=== PATIENT | male | born 1955 | race Caucasian/White ===

== ENCOUNTER 2020-08-28 12:11 | Outpatient (CLI) | payer OTHER ==
[2020-08-28] MEDS ORDERED: Iopamidol 370 76% 100 ML VIAL ONE (13:01)
--- NOTE | 2020-08-28 13:08 | CT ---
EXAM: CT Abdomen Pelvis W WO con PROVIDED CLINICAL HISTORY: Gross hematuria COMPARISON: 06/21/2010 FINDINGS: The visualized lung bases are free of significant opacity. There is no evidence for urinary tract calculi or hydronephrosis. There is a simple appearing cyst em anating from the inferior pole of the right kidney as well as subcentimeter hypodensities involving each kidney too small to definitively characterize but also likely reflecting cysts. There is no evid ence for solid renal mass. The renal collecting systems and ureters demonstrate no evidence for filling defect. The prostate gla nd appears enlarged and produces mass effect upon the urinary bladder base. There is a subcentimeter focus of altered CT density at the posterior aspect of the urinary bladder base left of midline (seen to best advantage on axial images 81 of series 2 and series 3), associated with the bladder wall. This does not definitely demonstrate enhancement, though assessment for such is difficu lt due to its small size. There is prominent heterogeneous density present within the urinary bladder on the delayed images, likely predominantly on the basis of mixing artifact as no such large abnormality is seen on the nonurographic images. The liver, spleen, pancreas and adrenal glands appear unremarkable. There is no bowel dilatation, inflammatory fat stranding, free fluid or lymph node enlargement appare nt. The osseous structures demonstrate no concerning lytic or blastic lesions. Scattered atherosclerotic vascular calcifications are seen. IMPRESSION: 1. Apparent filling defect within the urinary bladder as described, without definite enhancement. Blo od products and proteinaceous debris are possible. Mass is not excluded. 2. No evidence for urinary tract calculi or solid renal mass.
== END 2020-08-28 12:12 | disposition home or self-care (01) ==
LOC: CT 12:11
PROVIDERS: ATTEND Family Medicine
DX: R31.9 Hematuria, unspecified (principal)
CPT/HCPCS: 74178; Q9967

== ENCOUNTER 2020-09-14 06:40 | Outpatient (CLI) | payer OTHER | END 2020-09-14 06:41 | disposition home or self-care (01) | LOC: LABBT 06:40 | PROVIDERS: ATTEND Urology | DX: Z01.818 Encounter for other preprocedural examination (principal); R31.0 Gross hematuria; N28.1 Cyst of kidney, acquired; N40.1 Benign prostatic hyperplasia with lower urinary tract symptoms; R35.0 Frequency of micturition; Z87.442 Personal history of urinary calculi; Z12.5 Encounter for screening for malignant neoplasm of prostate; N28.9 Disorder of kidney and ureter, unspecified; R39.198 Other difficulties with micturition; Z90.79 Acquired absence of other genital organ(s) | CPT/HCPCS: 93005; 93010 ==

== ENCOUNTER 2020-09-19 06:28 | Observation (INO) | payer OTHER ==
[2020-09-14 12:07] LABS: Hemoglobin 13.9 g/dL (14.0-18.0); Mean Corpuscular Hemoglobin 29.8 PG (27.0-33.0); Mean Corpuscular Volume 90.3 fl (80.0-100.0); Mean Platelet Volume 9.6 fl (7.4-10.4); Platelet Count 221 10x3/uL (130-400); RBC Distribution Width 12.4 % (11.5-14.5); Red Blood Cell (RBC) Count 4.66 10x6/uL (4.40-5.80); White Blood Cell (WBC) Count 7.6 10x3/uL (4.5-11.0)
[2020-09-14 12:18] LABS: Anion Gap 15 mmol/L (10-20); BUN (Urea Nitrogen) 20 mg/dL (8.4-25.7); Calc. Creatinine Clearance 0 mL/min (70-130); Calcium 9.3 mg/dL (7.8-10.44); Carbon Dioxide 23 mmol/L (23-31); Chloride 109 mmol/L (98-107); Glucose 105 mg/dL (80-115); Potassium 4.5 mmol/L (3.5-5.1); Sodium 142 mmol/L (136-145)
[2020-09-14 12:34] LABS: INR-International Normal Ratio 1.1; PTT 28.8 sec (22.0-33.0); Prothrombin Time 11.1 sec (9.5-12.1)
[2020-09-14 23:08] LABS: SARS-CoV-2 MS2 Positive; SARS-CoV-2 N Gene Negative; SARS-CoV-2 S Gene Negative; SARS-CoV-2 by NAA Not Detected (NotDetected); SARS-CoV-2 orf1ab Negative
[2020-09-19] MEDS ORDERED: Levofloxacin 500 mg/D5W 100 ml Premix Bag ONE (07:00)
[2020-09-19] MEDS ORDERED: Fentanyl 100 MCG/2 ML VIAL ONE (08:27)
[2020-09-19] MEDS ORDERED: ePHEDrine 50 MG/ML VIAL ONE (10:31)
[2020-09-19] MEDS ORDERED: PHENYLEPHRINE-NS 100 MCG/ML 10 ML SYRINGE ONE (10:31)
[2020-09-19] MEDS ORDERED: Lidocaine 1% PF 5 ML VIAL ONE (10:31)
[2020-09-19] MEDS ORDERED: Dexamethasone 20 MG/5 ML VIAL ONE (10:31)
[2020-09-19] MEDS ORDERED: Calcium Chloride 1 GM/10 ML Abboject SYRINGE ONE (10:31)
[2020-09-19] MEDS ORDERED: PROPOFOL 200 MG/20 ML VIAL ONE (10:31)
[2020-09-19] MEDS ORDERED: Ondansetron PF 4 MG/2 ML Vial ONE (10:31)
[2020-09-19] MEDS ORDERED: Ondansetron PF 4 MG/2 ML Vial IVP PRN (10:46)
[2020-09-19] MEDS ORDERED: Mag-Al 1200 mg/1200 mg/30 ML UDCUP PO PRN (10:46)
[2020-09-19] MEDS ORDERED: Oxybutynin 5 MG TAB PO PRN (10:46)
[2020-09-19] MEDS ORDERED: Phenazopyridine HCl 97.5 MG TABLET PO PRN (10:46)
[2020-09-19] MEDS ORDERED: Acetaminophen 500 MG TAB PO PRN (10:46)
[2020-09-19] MEDS ORDERED: hydrALAZINE 20 MG/ML VIAL SLOW IVP PRN ×2 (10:46)
[2020-09-19] MEDS ORDERED: Zolpidem Tartrate 5 MG TAB PO PRN (10:46)
[2020-09-19] MEDS ORDERED: diphenhydrAMINE 50 MG/ML VIAL IVP PRN (10:46)
[2020-09-19] MEDS ORDERED: traMADol HCl 50 MG TAB PO PRN (10:55)
--- NOTE | 2020-09-19 11:36 | OP ---
DATE OF PROCEDURE: 09/19/2020 PREOPERATIVE DIAGNOSES: 1. A 65-year-old male with history of gross hematuria. 2. History of benign prostatic hyperplasia, status post transurethral resection of the prostate in 2003, with persistent obstructive urinary symptoms POSTOPERATIVE DIAGNOSES: 1. A 65-year-old male with history of gross hematuria. 2. History of benign prostatic hyperplasia, status post transurethral resection of the prostate in 2003. PROCEDURES PERFORMED: Cystoscopy, transurethral resection of prostate, transurethral vaporization of the prostate urethra, excision of right midshaft penile lesion 6 to 8 mm in size. ANESTHESIA: LMA, general. COMPLICATIONS: None apparent. DISPOSITION: To recovery room in stable condition. IV FLUIDS: 1200 mL. ESTIMATED BLOOD LOSS: About 150 mL. SPECIMEN: 1. TUR prostate. 2. Penile lesion midshaft, dorsal lateral. INTRAOPERATIVE FINDINGS: 1. Diffuse bladder trabeculation consistent with chronic outlet obstruction. 2. No evidence of bladder tumor. 3. Severely obstructing bilobar hyperplasia of the prostate, R lobe >>> left 4. Mid penile shaft lesion pearly in characteristic, rule out condyloma. 5. Prostatic urethra, hypervascular with varicosities. INDICATIONS FOR PROCEDURE AND HISTORY: Mr. Cherry is a 65-year-old male, referred to me by Dr. Carl due to intermittent gross hematuria with obstructive urinary symptoms. He underwent cystoscopy, which demonstrated old clots in the bladder, which I evacuated at bedside. In my office, cystoscopy demonstrated no bladder stone, however, he has changes consistent with a previous TUR as there was asymmetry of the right lateral lobe, no bladder tumor was seen. He presents today for TURP. Risks and complications and indications for the procedure was reviewed with the patient in detail including, but not limited to, bleeding, pain, infection, clot retention, bladder neck contracture, stricture formation, possible secondary procedure, possible stress incontinence, expectations of urge incontinence in the postop period, bladder or urethral injury discussed with him in detail. We did discuss options of alternative procedure :UroLift, however has he has gross hematuria due to friable prostatic urethra mucosa. TURP was advised. DESCRIPTION OF PROCEDURE: After an informed consent was signed, the patient was taken to the operating room, placed in a dorsal lithotomy position with the genital area prepped and draped in the usual surgical sterile fashion. A 21-Burkinan cystoscope was utilized for cystoscopy and a 30-degree and 70-degree lens was utilized to perform a cystoscopy, which demonstrated no evidence of bladder tumor. There was diffuse bladder trabeculation consistent with chronic outlet obstruction. Cystoscopy demonstrated as previous right lateral lobe asymmetrically enlarged, there was changes at the bladder neck consistent with previous TUR, left lateral lobe. Majority of his obstructing component is right lateral lobe. Prostatic urethra demonstrates significant varicosities. At this time, we transitioned to the bipolar resectoscope 26-Burkinan continuous sheath with a visual obturator. This was passed to the level of the bladder. As there was most of his obstructing lobes in the right side, he does have trigonal elevation of the right lateral lobe, the UOs were kept out of harm's way at all times. We resected the right lateral lobe, which was obstructing to be flushed with the contralateral lateral lobe. Near the end of the procedure, he had a wide bladder neck, resolution of obstructing right lateral lobe was noted. As he has some component of lateral lobe protruding after the resection of the right lateral lobe, I began to resect the left lateral lobe near the bladder neck first. Subsequently with Ellik evacuation, he did have gross hematuria and this demonstrated venous oozing from the left lateral prostatic urethra. I did not resect further as there were capsular fibers, this appeared to be venous in nature. With all prostatic chips evacuated, we repeatedly inspected the prostatic urethra after decompression, to assess degree of venous oozing.. This was isolated to the left lateral lobe. We then subsequently transitioned to a vaporization probe, and transurethral vaporization of the prostate was performed. We did obtain good hemostasis throughout the prostatic urethra. The venous bleed was difficult to address, as it was the nature of the venous bleeding to have issues with decompressed bladder and the urethra. We looked in the prostatic urethra multiple times, decompressing the bladder. I was able to get control of the venous bleed, with the button vaporization setting. With the bladder and the prostatic urethra near empty, it appeared to have stopped. At this time, a 22-Burkinan three-way Dale catheter was inserted without significant issues and I did inflate 40 mL in the balloon with sterile water in case he needs to be placed on traction for recurrent venous bleed. He did not require to be placed on traction, CBI was started with minimal to low rate and demonstrated clear output. He will be monitored overnight with CBI, we will monitor his CBC, BMP. Subsequently there was a pearly penile lesion at the mid dorsal penile shaft, excisional biopsy was performed with Metzenbaum scissors and bed of the lesion cauterized with electrocautery. This was sent for pathology as well. Job ID: [id number] MTDD
[2020-09-19] MEDS ORDERED: hydrALAZINE 20 MG/ML VIAL ONE (12:02)
[2020-09-19 13:07] LABS: #Lymphocytes 0.8 thou/uL (1.20-3.40); #Monocytes 0.1 thou/uL (0.11-0.59); #Neutrophils 8.3 thou/uL (1.40-6.50); %Basophils 0.1 % (0.0-1.0); %Eosinophils 0.4 % (0.0-10.0); %Lymphocytes 8.2 % (21.0-51.0); %Monocytes 1.3 % (0.0-10.0); Hemoglobin 14.1 g/dL (14.0-18.0); Mean Corpuscular Volume 91.4 fL (78.0-98.0); Mean Platelet Volume 7.6 fL (7.4-10.4); Platelet Count 159 thou/uL (130-400); RBC Distribution Width 11.9 % (11.5-14.5); Red Blood Cell (RBC) Count 4.56 mill/uL (4.70-6.10); White Blood Cell (WBC) Count 9.2 thou/uL (4.8-10.8)
[2020-09-19 13:25] LABS: Anion Gap 15 mmol/L (10-20); BUN (Urea Nitrogen) 19 mg/dL (8.4-25.7); Calc. Creatinine Clearance 60 mL/min (70-130); Calcium 9.1 mg/dL (7.8-10.44); Carbon Dioxide 18 mmol/L (23-31); Chloride 112 mmol/L (98-107); Glucose 120 mg/dL (80-115); Potassium 4.3 mmol/L (3.5-5.1); Sodium 141 mmol/L (136-145)
--- NOTE | 2020-09-19 13:27 | RAD ---
EXAM: CHEST ONE VIEW HISTORY: Postoperative, post TURP COMPARISON: None FINDINGS: The cardiac silhouette and pulmonary vasculature are within normal limits. Mild linear densities are seen in the region of the lingula and left lung base as well as to a lesser extent right lung base which may be related to minimal atelectasis and/or areas of scarring. No consolidation or pleural flu id is seen. Degenerative changes are seen in the spine. IMPRESSION: Minimal atelectasis versus scarring at each lung base without consolidation or pleural fluid seen.
[2020-09-19 13:34] LABS: Troponin I 0.015 ng/mL (< 0.028)
[2020-09-19] MEDS ORDERED: Metoprolol Tartrate 5 MG/5 ML VIAL IVP PRN (13:37)
--- NOTE | 2020-09-19 14:45 | CON ---
DATE OF CONSULTATION: 09/19/2020 PRIMARY CARE PROVIDER: Pito Carl MD. PRIMARY SERVICE ATTENDING: Jaclyn Weeks DO with Urology Service. REASON FOR CONSULTATION: Postoperative hypertension. HISTORY OF PRESENT ILLNESS: This is a 65-year-old male who was admitted under Dr. Weeks's service, who is status post transurethral resection of the prostate due to recurrent hematuria and benign prostatic hyperplasia, undergoing the procedure on 09/19/2020. Postoperatively, the patient was transferred to the PACU and noted to be hypertensive and complaining of some feelings of general weakness and jittery. The patient underwent evaluation including chest imaging, metabolic screening, as well as receiving IV hydralazine x2 doses due to postoperative hypertension. The patient states he had similar sensations after previous surgery several years prior, that was attributed to exposure to anesthesia. The patient denied any severe shortness of breath, tongue swelling, hives, fever, prominent chest pain, nausea, or vomiting. The patient denies any unilateral weakness or visual disturbance. PAST MEDICAL HISTORY: 1. Benign prostatic hyperplasia. 2. Recurrent hematuria. 3. Acute kidney injury on chronic kidney disease. 4. Hypertension. PAST SURGICAL HISTORY: 1. Status post transurethral resection of the prostate in 2003 and 2019. 2. Status post appendectomy. CURRENT MEDICATIONS: 1. Losartan 50 mg p.o. daily. 2. Simvastatin 20 mg p.o. daily. ALLERGIES: VICODIN CAUSING HYPOTENSION AND SYNCOPE. FAMILY HISTORY: Father with complications of coronary artery disease. Mother is . SOCIAL HISTORY: Resides in [place], [place]. 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 No current alcohol, tobacco, or illicit drug use. . Functional of all activities of daily living. REVIEW OF SYSTEMS: CONSTITUTIONAL: Negative for weight loss or gain, ability to conduct usual activities. SKIN: Negative for rash, itching. EYES: Negative for double vision, pain. ENT/MOUTH: Negative for nose bleeding, neck stiffness, pain, tenderness. CARDIOVASCULAR: Negative for palpitations, dyspnea on exertion, orthopnea. RESPIRATORY: Negative for shortness of breath, wheezing, cough, hemoptysis, fever or night sweats. GASTROINTESTINAL: Negative for poor appetite, abdominal pain, heartburn, nausea, vomiting, constipation, or diarrhea. GENITOURINARY: Negative for urgency, frequency, dysuria, nocturia. MUSCULOSKELETAL: Negative for pain, swelling. NEUROLOGIC/PSYCHIATRIC: Negative for anxiety, depression. ALLERGY/IMMUNOLOGIC: Negative for skin rash, bleeding tendency. Otherwise negative except as stated per HPI. PHYSICAL EXAMINATION: VITAL SIGNS: Currently; blood pressure 196/78, pulse 98, respiratory rate 20, temperature 97.7 degrees Fahrenheit, and O2 saturation 95% on room air. GENERAL APPEARANCE: This is a 65-year-old male, lying on the [facility] in the PACU, alert and oriented x3, pleasant, smiling, in no acute distress. HEENT: Pupils are equal, round, and reactive to light and accommodation. Extraocular muscles are intact. No scleral icterus. No conjunctival injection. Nares patent. OP is clear. Teeth in good repair. Oral mucosa dry. NECK: Supple. No cervical adenopathy. No thyromegaly. No carotid bruits. No JVD appreciated. Cervical spine with full active and passive range of motion. No meningeal signs noted. CHEST: Lungs are clear to auscultation bilaterally. CARDIOVASCULAR: S1 and S2 without noted murmur, rub, or gallop. ABDOMEN: Rounded, soft, nontender, and nondistended. Bowel sounds are positive in all 4 quadrants. There is no hepatosplenomegaly. No abdominal bruits. No rebound or guarding appreciated. : A 3-way Dale catheter in place with Dale catheter bag with gross hematuria. EXTREMITIES: Warm and dry with fair turgor. No clubbing, cyanosis, or asymmetric edema appreciated. Pulses palpable distally at the dorsalis pedis, posterior tibial, and popliteal arteries bilaterally. Capillary refill less than 2 seconds. NEUROLOGIC: Cranial nerves 2 through 12 are grossly intact. No focal or lateralizing signs appreciated. PERTINENT LABORATORY AND X-RAY FINDINGS: Sodium 142, potassium 4.5, chloride 109, CO2 of 23, BUN 20, creatinine 1.35, estimated GFR of 53, glucose 105, and calcium 9.3. CBC showed a white blood cell count of 9.2, hemoglobin 14, hematocrit 42, and platelet count 159 with 90% neutrophils. PT 11.1, INR 1.1, and PTT 28.8. COVID-19 PCR not detected on 09/14/2020. Portable chest x-ray dated 09/19/2020 pending. EKG dated 09/19/2020, by my interpretation, shows sinus mechanism with heart rates in the 90s, normal R-wave progression noted in the precordial leads, normal axis. No acute ST-T wave changes appreciated. ASSESSMENT AND PLAN: 1. Postoperative hypertension. Resume home blood pressure regimen to include losartan 25 mg x1 now, hydralazine 20 mg IV q.4 h. p.r.n. systolic over 170. Continue serial blood pressure monitoring and titrate blood pressure regimen to more optimal response. 2. Chronic kidney disease, stage 3. Avoid nephrotoxic agents and limit contrast exposure. Status post transurethral resection of prostate with indwelling Dale catheter. Serial creatinine monitoring. 3. Benign prostatic hyperplasia status post transurethral resection of prostate. Continue routine postoperative management per Urology Service. Three-way Dale catheter in place with continuous bladder irrigation. Pain control as clinically indicated. 4. Sinus tachycardia. Suspect secondary to hydralazine. Continue to monitor on the telemetry unit. Add Lopressor 5 mg IV q.6 h. p.r.n. systolic blood pressure over 170 or heart rate greater than 100. 5. Prophylaxis. Sequential compression devices while in bed. 6. Code status is full. Surrogate medical decision maker is the patient's spouse. Thank you for the consultation. We will continue to follow with Primary Service. Job ID: [id number]
[2020-09-19] MEDS ORDERED: Oxybutynin 5 MG TAB ONE (16:40)
[2020-09-19] MEDS: Sodium Chloride 0.9% 1,000 ML IV SCH ×2 (19:51→21:35)
[2020-09-19] MEDS ORDERED: Dutasteride 0.5 MG CAP PO SCH (21:00)
[2020-09-19] MEDS ORDERED: Atorvastatin Calcium 10 MG TAB PO SCH (21:00)
[2020-09-19] MEDS: Docusate 100 MG CAP PO SCH (21:29)
[2020-09-19] MEDS: Famotidine/PF 20 mg/2ml Vial SLOW IVP SCH (21:36)
[2020-09-19 21:57] VITALS: BMI 27.3
[2020-09-20] MEDS: Sodium Chloride 0.9% 1,000 ML IV SCH (03:45)
[2020-09-20 06:05] LABS: #Lymphocytes 1.5 thou/uL (1.20-3.40); #Monocytes 0.9 thou/uL (0.11-0.59); #Neutrophils 8.6 thou/uL (1.40-6.50); %Basophils 0.1 % (0.0-1.0); %Eosinophils 0.2 % (0.0-10.0); %Lymphocytes 13.4 % (21.0-51.0); %Monocytes 8.1 % (0.0-10.0); %Neutrophils 78.3 % (42.0-75.0); Hemoglobin 12.3 g/dL (14.0-18.0); Mean Corpuscular HGB CONC 34.3 g/dL (32.0-36.0); Mean Corpuscular Hemoglobin 30.8 pg (27.0-31.0); Mean Corpuscular Volume 89.6 fL (78.0-98.0); Mean Platelet Volume 7.7 fL (7.4-10.4); Platelet Count 175 thou/uL (130-400); RBC Distribution Width 12.1 % (11.5-14.5); Red Blood Cell (RBC) Count 4.01 mill/uL (4.70-6.10); White Blood Cell (WBC) Count 10.9 thou/uL (4.8-10.8)
[2020-09-20 06:23] LABS: Anion Gap 13 mmol/L (10-20); BUN (Urea Nitrogen) 19 mg/dL (8.4-25.7); Calc. Creatinine Clearance 70 mL/min (70-130); Calcium 8.4 mg/dL (7.8-10.44); Carbon Dioxide 20 mmol/L (23-31); Chloride 111 mmol/L (98-107); Glucose 106 mg/dL (80-115); Potassium 4.5 mmol/L (3.5-5.1); Sodium 139 mmol/L (136-145)
--- NOTE | 2020-09-20 07:41 | PRG ---
DATE OF SERVICE: 09/20/2020 SUBJECTIVE: The patient without complaints, no significant bladder spasms, fever, chills. Denies chest pain, shortness of breath. The night was uneventful. OBJECTIVE: VITAL SIGNS: T-max of 99.2, T current 97.9, 81, 16, 95, blood pressure 153/84. His CBI was held around 4 a.m., as there was minimal CBI per nursing staff. GENERAL: The patient is in no acute distress. LUNGS: Clear. ABDOMEN: Soft. No rigidity. No rebound. Urine output pink, slightly red tinged, transparent. No clots. Tubing flushed, with no subsequent clots with immediate clearing. EXTREMITIES: No cyanosis, clubbing, or edema. PERTINENT LABORATORY DATA: White count 10, hemoglobin stable at 12.3, platelets 173. The patient does have baseline renal insufficiency, his creatinine is 1.3, which is his baseline. IMPRESSION AND PLAN: A 65-year-old male postop day #1, status post transurethral resection of the prostate, transurethral vaporization of the prostate, excision of penile lesion. The patient had postop hypertension, appears to be relatively stable now. Appreciate medical hospitalist consult. I will continue to watch him off CBI, monitor for degree of hematuria. If no significant hematuria of concern, plan discharge this afternoon. Job ID: [id number] [facility]
[2020-09-20] MEDS: Docusate 100 MG CAP PO SCH (07:51)
[2020-09-20] MEDS: Famotidine/PF 20 mg/2ml Vial SLOW IVP SCH (07:51)
[2020-09-20] MEDS ORDERED: Losartan 25 MG TAB PO SCH (09:00)
[2020-09-20] MEDS ORDERED: Tamsulosin HCl 0.4 MG CAP PO SCH (09:00)
[2020-09-20] MEDS ORDERED: cefTRIAXone\\ROCEPHIN 1 GM in Sodium Chloride 0.9% 100 ML IVPB SCH (12:00)
--- NOTE | 2020-09-20 13:20 | DIS ---
DATE OF ADMISSION: 09/19/2020 DATE OF DISCHARGE: 09/20/2020 ADMITTING DIAGNOSIS: 1. Benign prostatic hyperplasia. 2. History of gross hematuria. DISCHARGE DIAGNOSES: 1. Benign prostatic hyperplasia. 2. History of gross hematuria. PROCEDURES PERFORMED: Cystoscopy, transurethral resection of prostate, vaporization of the prostatic urethra, penile lesion biopsy. DISPOSITION: To home, to self-care. DISCHARGE MEDICATIONS: 1. Omnicef.x 7 days 2. Ditropan 5 mg one p.o. q.8 hours p.r.n. for bladder spasm. 3. Azo p.r.n. provided. FOLLOW UP: Follow up with primary care in pre-existing visit September 24 at 9:[address] Carl. followup subsequently at 11:30 on September 24 for catheter removal, voiding trial. BRIEF HOSPITAL COURSE: Mr. Cherry is a pleasant 65-year-old male referred to me by Dr. Carl as he had gross hematuria with passage of clots. Workup demonstrated that he had evidence of renal insufficiency and possible bladder mass. He underwent local cystoscopy demonstrating old clots. No bladder tumors were seen. Cytology negative. He did present with severely obstructing prostate despite previous TURP. He underwent cysto, TURP, as most of his obstructive component was the right lateral lobe. He did have hypervascularity of the prostatic urethral mucosa resulting in gross hematuria previously. Near the end of the procedure, there was a bleeding and open venous channel. These are somewhat challenging to deal with, as it is a venous channel that requires compression. Nevertheless, I was able to get adequate hemostasis, he was monitored overnight with CBI. His CBI was held this morning, demonstrating pink-tinged urine. I watched him for several hours, on afternoon rounds, his urine output is clear, pink tinged. He is feeling well to go home. He did require postop medical consultation as he had generalized feeling of not feeling well, this is likely due to his severe allergies to narcotics, as he had similar events with prior surgery. He has had no discomfort requiring narcotics. With observation, his clinical status improved. He did have some hypertensive episodes postop, which medical consultation was obtained and did not require further workup. His postop EKG and troponin negative. The patient is deemed clear to be discharged. Instructions provided regarding Dale catheter care. Activity, no heavy lifting, strenuous activity advised. No straddling. Postop medications sent to his pharmacy electronically. Job ID: [id number] MTDD
[2020-09-20 14:17] VITALS: BP 133/72; TEMP 98.3
--- NOTE | 2020-10-01 06:20 | PQF ---
[facility] POST DISCHARGE CLINICAL DOCUMENTATION IMPROVEMENT CLARIFICATION FORM Todays Date: 09/27/20 Patients Name KATHIE QUINTANA Admit Date 09/19/20 Disch Date 09/20/20 Digital Art Director Name Francis Jolly Email: [email or web address] Cell: [phone] To be completed by Digital Art Director: Present Clinical Indicators - Signs / Symptoms Results and Location in Medical Record [ ] Documentation of:incidental lesion found on sahft ro warts [ ] [ ] Documentation of: [ ] [ ] Documentation of: [ ] [ ] Documentation of: [ ] [ ] Risks [ ] [ ] [ ] Treatment [ ] Intradermal nevus penile shaft (Path report) Query for of excised margins for penile lesion [ ] [ ] To be completed by Physician: DARIAN CUETO The documentation in this patients record requires clarification to ensure coding compliance and accuracy. Check the appropriate box and include in your discharge summary. [ ] [ ] [ ] [ ] Please check this box if this does not apply to this patient [ ] Unable to determine [ ] Other diagnosis: Review the following information and exercise your independent professional judgment in responding to the clarification. Based upon the clinical findings, risk factors, and treatment, please clarify if you are treating one of the above probable or suspected diagnoses. Physician Signature: Date Time MTDD
== END 2020-09-20 13:51 | disposition home or self-care (01) ==
LOC: SDC 06:28 → T4-B 10:55
PROVIDERS: ADMIT Urology; ATTEND Urology
PROC: 0VT08ZZ Resection of Prostate, Via Natural or Artificial Opening Endoscopic (ICD-10-PCS; principal; 2020-09-19)
PROC: 0VBSXZZ Excision of Penis, External Approach (ICD-10-PCS; 2020-09-19)
DX: N40.1 Benign prostatic hyperplasia with lower urinary tract symptoms (principal); N13.8 Other obstructive and reflux uropathy; R35.0 Frequency of micturition; R35.1 Nocturia; R39.12 Poor urinary stream; D29.0 Benign neoplasm of penis; N32.89 Other specified disorders of bladder; I12.9 Hypertensive chronic kidney disease with stage 1 through stage 4 chronic kidney disease, or unspecified chronic kidney disease; N18.30 Chronic kidney disease, stage 3 unspecified; E78.5 Hyperlipidemia, unspecified; I97.3 Postprocedural hypertension; Z79.899 Other long term (current) drug therapy; Z88.5 Allergy status to narcotic agent; Z88.6 Allergy status to analgesic agent; Z20.828 Contact with and (suspected) exposure to other viral communicable diseases
CPT/HCPCS: 36415; 71045; 80048; 84484; 85025; 85027; 85610; 85730; 86850; 86900; 86901; 87635; 88305; 93005; 93010; 96374; 96375; 96376; G0378; J0360; J0696; J1100; J1956; J2405; J2704; J3010; J3490; S0028; U0003

== ENCOUNTER 2021-03-15 18:12 | Observation (INO) | payer OTHER ==
[2021-03-15] MEDS ORDERED: Ondansetron PF 4 MG/2 ML Vial IVP PRN (20:55)
[2021-03-15] MEDS ORDERED: Ondansetron ODT 4 MG TAB PO PRN (20:55)
[2021-03-15 20:58] VITALS: BMI 27.8
[2021-03-15 21:47] LABS: Bacteria/HPF Rare-Few HPF (None Seen); RBC/HPF None Seen HPF (0-3); Squamous Epithelial 0-3 HPF (0-3); WBC/HPF None Seen HPF (0-3)
[2021-03-15] MEDS: Sodium Chloride 0.9% 1,000 ML IV SCH (21:59)
[2021-03-15 22:12] LABS: Troponin I Less than 0.010 ng/mL (< 0.028)
[2021-03-16 01:19] LABS: Troponin I Less than 0.010 ng/mL (< 0.028)
[2021-03-16 04:58] LABS: #Eosinphils 0.2 thou/uL (0.0-0.7); #Lymphocytes 2.3 thou/uL (1.20-3.40); #Monocytes 0.6 thou/uL (0.11-0.59); #Neutrophils 3.6 thou/uL (1.40-6.50); %Basophils 0.7 % (0.0-1.0); %Eosinophils 2.2 % (0.0-10.0); %Monocytes 8.5 % (0.0-10.0); %Neutrophils 53.6 % (42.0-75.0); Hemoglobin 12.7 g/dL (14.0-18.0); Mean Corpuscular HGB CONC 33.7 g/dL (32.0-36.0); Mean Corpuscular Hemoglobin 30.4 pg (27.0-31.0); Mean Corpuscular Volume 90.1 fL (78.0-98.0); Mean Platelet Volume 8.1 fL (7.4-10.4); Platelet Count 146 thou/uL (130-400); RBC Distribution Width 12.6 % (11.5-14.5); Red Blood Cell (RBC) Count 4.18 mill/uL (4.70-6.10); White Blood Cell (WBC) Count 6.7 thou/uL (4.8-10.8)
[2021-03-16 05:19] LABS: Anion Gap 10 mmol/L (10-20); BUN (Urea Nitrogen) 25 mg/dL (8.4-25.7); Calc. Creatinine Clearance 62 mL/min (70-130); Calcium 8.7 mg/dL (7.8-10.44); Carbon Dioxide 22 mmol/L (23-31); Chloride 113 mmol/L (98-107); Glucose 95 mg/dL (80-115); Potassium 4.3 mmol/L (3.5-5.1); Sodium 141 mmol/L (136-145)
[2021-03-16] MEDS: Sodium Chloride 0.9% 1,000 ML IV SCH (08:10)
[2021-03-16 10:04] LABS: SARS-CoV-2 NAA Rapid Test DETECTED (NotDetected)
[2021-03-16 15:38] VITALS: BP 155/80; TEMP 98.3
== END 2021-03-16 17:09 | disposition home or self-care (01) ==
LOC: ERS 18:12 → 2SW 19:39
PROVIDERS: ADMIT Student in an Organized Health Care Education/Training Program; ATTEND Family Medicine
DX: U07.1 COVID-19 (principal); T67.5XXA Heat exhaustion, unspecified, initial encounter; E86.0 Dehydration; N17.9 Acute kidney failure, unspecified; I10 Essential (primary) hypertension; E78.5 Hyperlipidemia, unspecified; Z79.899 Other long term (current) drug therapy; Z88.5 Allergy status to narcotic agent; Z88.6 Allergy status to analgesic agent; X30.XXXA Exposure to excessive natural heat, initial encounter; Y99.0 Civilian activity done for income or pay
CPT/HCPCS: 36415; 71045; 80048; 81015; 82550; 84484; 85025; 93005; 93306; G0378; U0002; U0003; U0005